=== PATIENT | female | born 1965 | race Caucasian/White ===

== ENCOUNTER 2016-04-09 08:14 | Emergency (ER) | payer MEDICARE ==
[2016-04-09] MEDS ORDERED: NEOMYCIN/POLYMYXIN B SULF/HC 10ML BTL OT ONE (08:35)
[2016-04-09] MEDS ORDERED: AZITHROMYCIN 500 MG TABLET PO ONE (08:35)
--- NOTE | 2016-04-09 08:38 | Emergency Department Record ---
History of Present Illness - General Chief Complaint: Back Pain/Injury Stated Complaint: CONGESTION/FALL Time Seen by Provider: 04/09/16 08:21 Source: Patient Mode of Arrival: Ambulatory Limitations: No limitations - History of Present Illness Initial Comments: pt has sore ears, throat, hoarseness , cough. she also has a leg that intermittantly goes numb, she has had this for a long time but it seems to be getting worse she has had 2 surgeries on her back and has metal cages in her back. Complaint: Back pain Onset/Timin -: Week(s) Similar Symptoms Previously: Yes Place: Home Radiation: Left leg Improves With: None Worsens With: None Context: Fall Associated Symptoms: Cough Treatments Prior to Arrival: Prescription analgesics - Related Data Home Medications Medication Instructions Recorded Confirmed Last Taken Diazepam [Diazepam] 10 mg PO TID 04/09/16 04/09/16 04/08/16 Methadone HCl 10 mg PO 04/09/16 04/09/16 Oxycodone HCl/Acetaminophen 10 mg PO TID 04/09/16 04/09/16 04/09/16 [Percocet 10mg/325mg] Previous Rx's Medication Instructions Recorded Azithromycin [Zithromax] 250 mg PO DAILY #4 tab 04/09/16 Allergies Allergy/AdvReac Type Severity Reaction Status Date / Time hydromorphone HCl Allergy HIVES Verified 04/09/16 08:38 [From Dilaudid] tramadol HCl [From Ultram] Allergy RASH Verified 04/09/16 08:38 doxycycline AdvReac HYPERSENSIT Verified 04/09/16 08:38 IVITY oxytetracycline AdvReac HYPERSENSIT Verified 04/09/16 08:38 IVITY Travel Screening - Travel/Exposure Within Last 30 Days Have you traveled within the last 30 days?: No - Travel/Exposure Within Last Year Have you traveled outside the [place] in the last year?: No - Additonal Travel Details Have you been exposed to anyone with a communicable illness?: No - Travel Symptoms Symptom Screening: None Review of Systems Reviewed: No additional complaints except as noted below Constitutional: Reports: As per HPI. Denies: Chills, Fever, Malaise, Night sweats, Weakness, Weight change Eyes: Reports: As per HPI. Denies: Eye discharge, Eye pain, Photophobia, Vision change ENT: Reports: As per HPI. Denies: Congestion, Dental pain, Ear pain, Epistaxis , Hearing loss, Throat pain Respiratory: Reports: As per HPI. Denies: Cough, Dyspnea, Hemoptysis, Stridor, Wheezes Cardiovascular: Reports: As per HPI. Denies: Arrhythmia, Chest pain, Dyspnea on exertion, Edema, Murmurs, Orthopnea, Palpitations, Paroxysmal nocturnal dyspnea, Rheumatic Fever, Syncope Endocrine: Reports: As per HPI. Denies: Fatigue, Heat or cold intolerance, Polydipsia, Polyuria Gastrointestinal: Reports: As per HPI. Denies: Abdominal pain, Constipation, Diarrhea, Hematemesis, Hematochezia, Melena, Nausea, Vomiting Genitourinary: Reports: As per HPI. Denies: Abnormal menses, Discharge, Dyspareunia, Dysuria, Frequency, Hematuria, Incontinence, Retention, Urgency Musculoskeletal: Reports: As per HPI. Denies: Arthralgia, Back pain, Gout, Joint swelling, Myalgia, Neck pain Skin: Reports: As per HPI. Denies: Bruising, Change in color, Change in hair/ nails, Lesions, Pruritus, Rash Neurological: Reports: As per HPI. Denies: Abnormal gait, Confusion, Headache, Numbness, Paresthesias, Seizure, Tingling, Tremors, Vertigo, Weakness Psychiatric: Reports: As per HPI. Denies: Anxiety, Auditory hallucinations, Depression, Homicidal thoughts, Suicidal thoughts, Visual hallucinations Hematological/Lymphatic: Reports: As per HPI. Denies: Anemia, Blood Clots, Easy bleeding, Easy bruising, Swollen glands Physical Exam - General General Appearance: Alert, Oriented x3, Cooperative, Mild distress - Head Head exam: Normal inspection - Eye Eye exam: Normal appearance, PERRL, EOMI Pupils: Normal accommodation - ENT ENT exam: Normal exam, Mucous membranes moist, Normal external ear exam, Normal orophraynx, Other (tms very erythematous bilaterally as well as canals) Ear exam: Normal external inspection. negative: External canal tenderness Nasal Exam: Normal inspection. negative: Discharge, Sinus tenderness Mouth exam: Normal external inspection, Tongue normal Teeth exam: Normal inspection. negative: Dental caries Throat exam: Normal inspection. negative: Tonsillar erythema, Tonsillar exudate - Neck Neck exam: Normal inspection, Full ROM. negative: Tenderness - Respiratory Respiratory exam: Normal lung sounds bilaterally. negative: Respiratory distress - Cardiovascular Cardiovascular Exam: Regular rate, Normal rhythm, Normal heart sounds - GI/Abdominal GI/Abdominal exam: Soft, Normal bowel sounds. negative: Tenderness - Rectal Rectal exam: Deferred - exam: Deferred - Extremities Extremities exam: Normal inspection, Full ROM, Normal capillary refill. negative: Tenderness - Back Back exam: Reports: Normal inspection, Full ROM. Denies: Muscle spasm, Rash noted, Tenderness - Neurological Neurological exam: Alert, CN II-XII intact, Oriented X3. negative: Normal gait - Psychiatric Psychiatric exam: Normal affect, Normal mood - Skin Skin exam: Dry, Intact, Normal color, Warm Course Vital Signs 04/09/16 08:18 Temperature 97.5 F L Pulse Rate 101 H Respiratory 20 Rate Blood Pressure 157/106 Pulse Ox 94 L Disposition Disposition: Discharge Clinical Impression: Lumbar radiculopathy Otitis externa Qualifiers: Otitis externa type: unspecified type Laterality: bilateral Chronicity: acute Qualified Code(s): H60.503 - Unspecified acute noninfective otitis externa, bilateral Otitis media Qualifiers: Otitis media type: unspecified Laterality: bilateral Chronicity: unspecified Qualified Code(s): H66.93 - Otitis media, unspecified, bilateral Disposition: Home, Self-Care Condition: (1) Good Instructions: Otitis Media (ED), Otitis Externa (ED), Lumbar Radiculopathy (ED) Additional Instructions: follow up with family doctor and neurosurgeon. have MRI damien. return sooner if worse. 2 drops to each ear 4 times a day for 5 days. Prescriptions: Azithromycin [Zithromax] 250 mg PO DAILY #4 tab Forms: Patient Portal Access
== END 2016-04-09 09:02 | disposition home or self-care (01) ==
LOC: ER 08:14
DX: M54.16 Radiculopathy, lumbar region (principal); H66.93 Otitis media, unspecified, bilateral; H60.93 Unspecified otitis externa, bilateral
CPT/HCPCS: 99283

== ENCOUNTER 2017-06-10 12:28 | Emergency (ER) | payer MEDICARE ==
--- NOTE | 2017-06-10 12:55 | Emergency Department Record ---
History of Present Illness - General Chief Complaint: Fall Injury Stated Complaint: FELL LAST WEDNESDAY/HEADACHE Time Seen by Provider: 06/10/17 12:44 Source: Patient Mode of Arrival: Ambulatory Limitations: No limitations - History of Present Illness Initial Comments: The patient is here due to a fall 5 days ago. She slipped on her wet deck and landed possibly hitting her head. She believes she had a LOC and has had a ARANDA since. Additionally she has R wrist pain and R low back pain. The patient denies any new neck pain. She states she has chronic neck and back pain due to multiple previous surgeries and is on multiple chronic pain medicines. MD Complaint: Fall Onset/Timin -: Days(s) Fall From: From height (distance), Standing When Fall Occurred: # Days [employer] Fall Witnessed: No Loss of Consciousness: Yes, Second(s) Symptoms Prior to Fall: None Quality: Aching Context: Alcohol use Associated Symptoms: Denies - [place] Coma Scale Eye Response: (4) Open spontaneously Motor Response: (6) Obeys commands Verbal Response: (5) Oriented [place] Total: 15 - Related Data Home Medications Medication Instructions Recorded Confirmed Last Taken Fluticasone Propionate [Flonase] 2 spray EACH NARES DAILY 06/10/17 06/10/17 Unknown Hydrochlorothiazide [Hctz] 25 mg PO DAILY 06/10/17 06/10/17 06/10/17 Allergies Allergy/AdvReac Type Severity Reaction Status Date / Time hydromorphone HCl Allergy HIVES Verified 06/10/17 12:44 [From Dilaudid] tramadol HCl [From Ultram] Allergy RASH Verified 06/10/17 12:44 doxycycline AdvReac HYPERSENSIT Verified 06/10/17 12:44 IVITY oxytetracycline AdvReac HYPERSENSIT Verified 06/10/17 12:44 IVITY Travel Screening - Travel/Exposure Within Last 30 Days Have you traveled within the last 30 days?: No - Travel/Exposure Within Last Year Have you traveled outside the [place] in the last year?: No - Additonal Travel Details Have you been exposed to anyone with a communicable illness?: No - Travel Symptoms Symptom Screening: None Review of Systems Constitutional: Denies: Chills, Fever Eyes: Denies: Eye discharge ENT: Denies: Congestion Respiratory: Denies: Cough Past Medical History - SOCIAL HISTORY Smoking Status: Current every day smoker Alcohol Use: None Drug Use: None - RESPIRATORY Hx Respiratory Disorders: No - CARDIOVASCULAR Hx Cardio Disorders: No - NEURO Hx Neuro Disorders: Yes Hx Neuropathy: Yes - GI Hx GI Disorders: Yes Hx Reflux: Yes - Hx Genitourinary Disorders: No - ENDOCRINE Hx Endocrine Disorders: No Hx Diabetes: No Hx Thyroid Disease: No - MUSCULOSKELETAL Hx Musculoskeletal Disorders: Yes Hx Back Injury: Yes Hx Fibromyalgia: Yes - PSYCH Hx Psych Problems: No - HEMATOLOGY/ONCOLOGY Hx Hematology/Oncology Disorders: No Family Medical History Any Significant Family History?: No Hx Diabetes: Mother, Grandparents Hx HTN: Mother, Grandparents Hx Stroke: Grandparents Physical Exam - General General Appearance: Alert, Oriented x3, Cooperative, No acute distress - Head Head exam: Atraumatic, Normocephalic, Normal inspection - Eye Eye exam: Normal appearance, PERRL, EOMI - Neck Neck exam: Normal inspection, Full ROM. negative: Tenderness - Respiratory Respiratory exam: Normal lung sounds bilaterally. negative: Respiratory distress - Cardiovascular Cardiovascular Exam: Regular rate, Normal rhythm, Normal heart sounds - GI/Abdominal GI/Abdominal exam: Soft, Normal bowel sounds. negative: Tenderness - Extremities Extremities exam: Normal inspection, Tenderness (There is R wrist tenderness mainly dorsally diffusely. There is no significant snuff box tend or pain with thumb impaction.). negative: Full ROM (There is decreased ROM of the R wrist due to pain.) - Neurological Neurological exam: Alert, Normal gait. negative: Abnormal gait, Motor sensory deficit Course Vital Signs 06/10/17 12:36 Temperature 97.8 F Pulse Rate 90 Respiratory 20 Rate Blood Pressure 127/97 Pulse Ox 97 - Reevaluation(s) Reevaluation #1: The patient is doing well at this time. She is resting comfortably. I did discuss the neg xrays with her and the need for F/U with her PCP early next week. 06/10/17 14:01 Medical Decision Making - Data Complexity MDM Data: X-Ray Ordered and/or Reviewed - Radiology Data Radiology results: Report reviewed (Head and neck CT: Neg R Wrist: Neg Lumbar: postsurgical changes and DJD, O/W neg) Disposition Disposition: Discharge Clinical Impression: Concussion Qualifiers: Encounter type: initial encounter Right wrist sprain Qualifiers: Encounter type: initial encounter Qualified Code(s): S63.501A - Unspecified sprain of right wrist, initial encounter Disposition: Home, Self-Care Condition: (2) Stable Instructions: Head Injury (ED), Wrist Sprain (ED) Additional Instructions: Please continue your home pain medicines and wear the wrist splint for 1-2 weeks. Please see your family doctor next week for recheck. Return to the ER for any worsening symptoms. Forms: Patient Portal Access Time of Disposition: 14:11 Quality - Quality Measures Quality Measures: N/A, Blunt Head Trauma (>2yr) - [place] Coma Scale Eye Response: (4) Open spontaneously Motor Response: (6) Obeys commands Verbal Response: (5) Oriented [place] Total: 15 - Blunt Head Trauma - Adult Quality Measure: Measure #415: Utilization of CT for Minor Blunt Head Trauma ICD10 Codes Entered: Yes View Details: Yes Was CT ordered: Yes Does Patient Have Any of the Following: Multisystem Trauma Patient Presented Within 24 Hours of Injury: No [place] Score: [address] for Minor Blunt Head Trauma: Patient Excluded [G9531] Additional Inclusion Criteria: More than 24hrs (OR) GCS not 15 (OR) CT not ordered. Indications For CT: Headache w/Loss of Consciousness Not Eligible Reason: Injury Greater Than 24 Hours Ago - Blood Pressure Screening View Details: Yes Does Patient Have Any of the Following: No Blood Pressure Classification: Hypertensive Reading Systolic Measurement: 127 Diastolic Measurement: 97 Screening for High Blood Pressure: < First Hypertensive BP, F/U Documented > [ G8950] First Hypertensive Follow-up Interventions: Referral to alternative/primary care provider.
--- NOTE | 2017-06-11 10:37 | CT SCAN REPORT ---
EXAM: CT OF THE BRAIN WITHOUT CONTRAST HISTORY: HEADACHE. TECHNIQUE: CT of the brain without contrast was obtained. Comparison: None. FINDINGS: The globes are intact. The paranasal sinuses and mastoid air cells are unremarkable. No displaced or depressed skull fracture. No intra or extraaxial hemorrhage. CT limited for evaluation of acute infarct. No CT evidence for large or territorial acute infarct. No mass or midline shift. IMPRESSION: UNREMARKABLE UNENHANCED CT BRAIN. JOB NUMBER: [id number] [facility]
--- NOTE | 2017-06-11 10:41 | CT SCAN REPORT ---
EXAM: CT OF THE CERVICAL SPINE HISTORY: FALL. TECHNIQUE: Axial CT images of the cervical spine were obtained with coronal and sagittal reconstructions. Comparison: None. FINDINGS: Evaluation of spinal canal contents is limited due to CT technique, however, the vertebral body height and alignment is preserved. The atlantoaxial space is preserved. The lateral masses are not displaced. Multilevel degenerative change, greatest at C5-C6. Limited evaluation of the lung apices shows emphysematous changes bilaterally. IMPRESSION: NO CT EVIDENCE FOR ACUTE CERVICAL SPINE ABNORMALITY. J[facility]BER: [id number] [facility]
--- NOTE | 2017-06-11 10:50 | RADIOLOGY REPORT ---
EXAM: LUMBAR SPINE HISTORY: BACK PAIN. TECHNIQUE: Frontal and lateral views of the lumbar spine were obtained. Comparison: None. FINDINGS: Osteopenia. Five lumbar type vertebral bodies. Post surgical changes at the L5-S1 level. The vertebral body height and alignment is preserved. Facet arthropathy with end plate degenerative changes throughout the lumbar spine greatest at L4-L5. The sacroiliac joints are preserved. IMPRESSION: OSTEOPENIA WITH POST SURGICAL CHANGE AT L5-S1. MULTILEVEL DEGENERATIVE CHANGE. J[facility]BER: [id number] [facility]
--- NOTE | 2017-06-11 10:51 | RADIOLOGY REPORT ---
EXAM: RIGHT WRIST HISTORY: FALL. TECHNIQUE: Four views of the right wrist were obtained. Comparison: None. Encounter: Initial. FINDINGS: Negative for fracture or dislocation. The soft tissues are unremarkable. The joint spaces are preserved. IMPRESSION: NEGATIVE RIGHT WRIST EXAMINATION. JOB NUMBER: [id number] [facility]
== END 2017-06-10 14:20 | disposition home or self-care (01) ==
LOC: ER 12:28
DX: S06.0X9A Concussion with loss of consciousness of unspecified duration, initial encounter (principal); S63.501A Unspecified sprain of right wrist, initial encounter; R51 Headache; M54.5 Low back pain; M54.2 Cervicalgia; W01.0XXA Fall on same level from slipping, tripping and stumbling without subsequent striking against object, initial encounter; F17.210 Nicotine dependence, cigarettes, uncomplicated
CPT/HCPCS: 70450; 72100; 72125; 99283; 99284